=== PATIENT | male | born 1965 | race Two or more races ===

== ENCOUNTER 2019-07-27 12:52 | Observation (INO) | payer SELFPAY ==
[~2019-07-27] VITALS: Ht 167.6 cm; Wt 77.0 kg
[2019-07-27 14:48] LABS: MICROSCOPIC INDICATED
[2019-07-27 14:49] LABS: CULTURE INDICATED? YES
--- NOTE | 2019-07-27 15:00 | NUR ---
REPORT RECEIVED FROM MAYA MAXWELL. PLAN OF CARE DISCUSSED.
[2019-07-27] MEDS ORDERED: HYDR-3240 PO (16:04)
--- NOTE | 2019-07-27 16:19 | NUR ---
PATIENT RESTING ON GURNEY, NAD, VSS, DENIES PAIN. CALL LIGHT IN REACH. RECEIVED ADMIT ORDER, WAITING FOR ROOM ASSIGNMENT.
[2019-07-27] MEDS ORDERED: HYDROmorphone 1 MG/ML, 1ML INJ IVPush PRN (16:30)
[2019-07-27] MEDS ORDERED: HYDROcodone/APAP 5/325 TABLET PO PRN (16:30)
[2019-07-27] MEDS ORDERED: IBUPROFEN 600 MG TABLET PO PRN (16:30)
[2019-07-27] MEDS ORDERED: ONDANSETRON 2MG/ML, 2ML IVPush PRN (16:30)
[2019-07-27] MEDS ORDERED: SODIUM CHLORIDE FLUSH 10ML SYR IVF PRN (16:30)
[2019-07-27] MEDS ORDERED: ONDANSETRON ODT 4 MG PO PRN (16:30)
[2019-07-27] MEDS ORDERED: CEFTRIAXONE PMX 1GM/50ML 50 ML IV SCH (17:00)
[2019-07-27 17:14] VITALS: BP 155/83
--- NOTE | 2019-07-27 17:15 | NUR ---
CALL PLACED TO [facility] TO VERIFY ROCEPHIN ALREADY GIVEN AT SENDING FACILTY. NORMA RECEIVED 2 GRAMS ROCEPHIN AT [facility] PRIOR TO TRANSFER. MD RIVER.
[2019-07-27 18:09] LABS: BASOPHILS # (AUTO) 0.08 x10^3/uL (0-0.1); BASOPHILS % (AUTO) 1 % (0-1); EOSINOPHILS # (AUTO) 0.17 x10^3/uL (0-0.4); EOSINOPHILS % (AUTO) 1 % (1-7); LYMPHOCYTES # (AUTO) 2.51 x10^3/uL (1-3.4); LYMPHOCYTES % (AUTO) 19 % (22-44); MD NO; MEAN CORPUSCULAR HGB CONC 33.4 g/dL (33.2-36.2); MEAN CORPUSCULAR VOLUME 92.8 fL (81-97); MONOCYTES # (AUTO) 1.13 x10^3/uL (0.2-0.8); MONOCYTES % (AUTO) 9 % (2-9); NEUTROPHILS # (AUTO) 9.41 x10^3/uL (1.8-6.8); NEUTROPHILS % (AUTO) 71 % (42-75); PLATELET COUNT 234 x10^3/uL (130-400); RED BLOOD COUNT 4.89 x10^6/uL (4.38-5.82); RED CELL DISTRIBUTION WIDTH 12.9 % (9.4-14.8)
[2019-07-27 18:18] LABS: ANION GAP 6 mmol/L (5-15); CALCIUM 8.6 mg/dL (8.5-10.1); CHLORIDE 111 mmol/L (98-107); CREATININE 1.19 mg/dL (0.7-1.3)
[2019-07-27] MEDS ORDERED: FENTANYL PF 100 MCG/2ML ONE (18:28)
[2019-07-27] MEDS ORDERED: MIDAZOLAM 1 MG/ML, 2ML ONE (18:28)
[2019-07-27] MEDS ORDERED: OMNIPAQUE 350 MG/ML, 50 ML BOTTLE IV ONE (18:55)
[2019-07-27] MEDS ORDERED: ONDANSETRON 2MG/ML, 2ML ONE (18:59)
[2019-07-27] MEDS ORDERED: PROPOFOL 10 MG/ML, 20ML ONE (18:59)
[2019-07-27] MEDS ORDERED: DEXAMETHASONE 4 MG/ML, 1ML ONE (18:59)
[2019-07-27] MEDS ORDERED: HYDROcodone/APAP 5/325 TABLET PO ONE (19:30)
== END 2019-07-27 21:30 | disposition home or self-care (01) ==
LOC: ED 14:53 → INTOOBSV 16:11 → EDIP 16:11 → 4NE 20:15
PROVIDERS: ADMIT Internal Medicine; ATTEND Internal Medicine
DX: N39.0 Urinary tract infection, site not specified (principal); N13.2 Hydronephrosis with renal and ureteral calculous obstruction; R10.9 Unspecified abdominal pain; F17.210 Nicotine dependence, cigarettes, uncomplicated; Z80.7 Family history of other malignant neoplasms of lymphoid, hematopoietic and related tissues
CPT/HCPCS: 36415; 52332; 74420; 80048; 81001; 85025; 87086; 99284; C1769; C2617; G0378; J1100; J2250; J2405; J2704; J3010; Q9967